=== PATIENT | female | born 1955 | race Caucasian/White ===

== ENCOUNTER 2021-11-09 17:02 | Inpatient (IN) | payer MEDICARE, OTHER ==
[~2021-11-09] VITALS: Ht 160 cm; Wt 49.0 kg
[2021-11-09] MEDS ORDERED: IV NS 0.9% 1,000 ML BAG IV ONE (18:30)
[2021-11-09] MEDS ORDERED: VANCOMYCIN 1 GM in IV D5W 250 ML IV ONE (19:30)
--- NOTE | 2021-11-09 19:33 | NUR ---
COVID SWAB SENT TO LAB
[2021-11-09 19:51] LABS: ALBUMIN 3.3 g/dL (3.4-5.0); BILIRUBIN,DIRECT 0.1 mg/dL (0.0-0.2); BILIRUBIN,TOTAL 0.7 mg/dL (0.2-1.0); CALCIUM, SERUM 8.5 mg/dL (8.5-10.1); CREATININE 0.7 mg/dL (0.6-1.3); POTASSIUM 3.7 mmol/L (3.5-5.1); TOTAL PROTEIN, SERUM 6.6 g/dL (6.4-8.2)
--- NOTE | 2021-11-09 19:54 | NUR ---
EPIC PANEL PAGED.
[2021-11-09] MEDS ORDERED: VANCOMYCIN 1 GM VIAL ONE (20:02)
--- NOTE | 2021-11-09 20:03 | NUR ---
SEEN BY CHECO CASTRO AT BEDSIDE
--- NOTE | 2021-11-09 20:10 | NUR ---
COVID SWAB COLLECTED SENT TO LAB
[2021-11-09 20:14] LABS: BASOPHILS # (AUTO) 0.1 K/uL (0.0-0.2); BASOPHILS % (AUTO) 1.3 % (0.0-2.0); EOSINOPHILS % (AUTO) 3.5 % (0.0-6.0); HEMATOCRIT 36 % (33-45); HEMOGLOBIN 12.4 g/dL (11.5-14.8); LYMPHOCYTES # (AUTO) 1.2 K/uL (0.8-4.8); LYMPHOCYTES % (AUTO) 28.4 % (20.0-44.0); MEAN CORPUSCULAR HGB CONC 35 g/dl (31.0-36.0); MEAN CORPUSCULAR VOLUME 97 fL (82-100); MONOCYTES # (AUTO) 0.5 K/uL (0.1-1.30); MONOCYTES % (AUTO) 12.9 % (2.0-12.0); NEUTROPHILS # (AUTO) 2.3 K/uL (1.8-8.9); NEUTROPHILS % (AUTO) 53.9 % (43.0-81.0); PLATELET COUNT (AUTO) 155 K/uL (150-450); RED BLOOD CELL COUNT(AUTO) 3.68 MIL/uL (4.0-5.2); WHITE BLOOD COUNT (AUTO) 4.2 K/uL (4.3-11.0)
[2021-11-09] MEDS ORDERED: LORAZEPAM 1 MG TABLET PO PRN (21:00)
[2021-11-09] MEDS ORDERED: ACETAMINOPHEN 325 MG TABLET PO PRN (21:00)
[2021-11-09] MEDS ORDERED: MAGNESIUM HYDROXIDE 30 ML UDC PO PRN (21:00)
[2021-11-09] MEDS ORDERED: Z GUARD REMEDY 4 OZ OINT TP PRN (21:00)
[2021-11-09] MEDS ORDERED: ONDANSETRON HCL/PF 4 MG/2 ML VIAL IVP PRN (21:00)
[2021-11-09] MEDS ORDERED: TEMAZEPAM 15 MG CAPSULE PO PRN (21:00)
[2021-11-09 21:03] LABS: BAND % (MANUAL) 26 % (0.0-5.0); EOSINOPHILS % (MANUAL) 4 % (0-4); LYMPHOCYTES % (MANUAL) 24 % (16-48); METAMYELOCYTES % 2 % (0-0); MONOCYTES % (MANUAL) 16 % (0-11.0); MYELOCYTES % 4 % (0-0); NEUTROPHILS % (MANUAL) 24 (42-76)
[2021-11-09] MEDS: METRONIDAZOLE 500MG/ NS 100ML 500 MG in PREMIX 1 EA IV SCH ×2 (23:47→23:50)
[2021-11-09] MEDS: CEFTRIAXONE 1 G in IV D5W 50 ML IV SCH (23:47)
[2021-11-09] MEDS ORDERED: METRONIDAZOLE 500MG/ NS 100ML 100 ML IV ONE (23:48)
[2021-11-09] MEDS ORDERED: ENOXAPARIN SODIUM 40 MG/0.4 ML DISP.SYRIN SQ ONE (23:48)
[2021-11-09] MEDS: ATORVASTATIN 40 MG TABLET PO SCH (23:55)
[2021-11-10 00:04] VITALS: BP 132/75
[2021-11-10] MEDS ORDERED: CEFTRIAXONE 1GM BAG (ER ONLY) 50 ML IV ONE (00:31)
--- NOTE | 2021-11-10 02:24 | NUR ---
REPORT GIVEN TO 3W RN.
--- NOTE | 2021-11-10 02:43 | NUR ---
PT TRANSFERRING TO 3W VIA ACLS PROTOCOL. VSS. ALL BELONGINGS WITH PT.
[2021-11-10 02:46] LABS: BILIRUBIN,URINE NEGATIVE (NEGATIVE); COLOR,URINE YELLOW (YELLOW); LEUKOCYTE ESTERASE ,URINE NEGATIVE (NEGATIVE); NITRITE, URINE NEGATIVE (NEGATIVE); PROTEIN,URINE 30 mg/dl (NEGATIVE); UGLUCOSE NEGATIVE (NEGATIVE); UROBILINOGEN,URINE 0.2 EU/dL (0.2)
--- NOTE | 2021-11-10 03:00 | NUR ---
MS FLOUR MIXER NOTE PATIENT ALERT/ORIENTED X 4, PRIMARILY SLOVAK SPEAKING, PT ABLE TO MAKE NEEDS KNOWN. PATIENT STABLE ON RA, NO S/S OF DISTRESS OR SOB NOTED, BREATHING EVEN AND UNLABORED. IV ACCESS ON RAC #20G INTACT AND FLUSHING WELL. PATIENT HAS LEFT BUTTOCK WOUND/SCAB, WOUND PHOTO TAKEN AND PLACED IN CHART. BELONGINGS LIST COMPLETED BY JAVA XML DEVELOPER AND PLACED IN CHART. PATIENT FULLY VACCINATED FOR COVID WITH PFEIZER ON MAY 2021 AND JUN 2021. PATIENT STATES SHE HAD PNEUMONIA VACCINE ABOUT 4-5 YEARS AGO. ORIENTED PATIENT TO ROOM AND HOW TO USE CALL LIGHT AND REMOTE. PATIENT IS AMBULATORY TO BATHROOM AND STEADY. PATIENT STATES SHE'S STILL HAVING NAUSEA AND DIARRHEA. SAFETY MEASURES IN PLACE: CALL LIGHT WITHIN REACH, BED LOCKED IN LOWEST POSITION. PATIENT ON FULL LIQUID DIET. WILL CONTINUE TO MONITOR PATIENT
[2021-11-10] MEDS: IV NS 0.9% 1,000 ML IV PRN (04:05)
--- NOTE | 2021-11-10 05:49 | NUR ---
MS RN NOTE IV FLAGYL 500 MG NOT AVAILABLE ON FLOOR. PRINTED ORDER AND GAVE TO NURSING BREASTER. AWAITING FOR MEDICATION
[2021-11-10] MEDS ORDERED: METRONIDAZOLE 500MG/ NS 100ML 100 ML IV ONE (06:03)
[2021-11-10] MEDS: METRONIDAZOLE 500MG/ NS 100ML 500 MG in PREMIX 1 EA IV SCH ×3 (06:13→20:16)
[2021-11-10 07:32] LABS: CALCIUM, SERUM 8.1 mg/dL (8.5-10.1); CREATININE 0.7 mg/dL (0.6-1.3); MAGNESIUM 2.5 mg/dL (1.8-2.4); PHOSPHORUS 2.4 mg/dL (2.5-4.9); POTASSIUM 3.3 mmol/L (3.5-5.1)
--- NOTE | 2021-11-10 07:39 | NUR ---
MS RN CLOSING NOTE PATIENT AWAKE IN BED, ALERT/ORIENTED X 4, PT ABLE TO MAKE NEEDS KNOWN, PRIMARILY CHINESE SPEAKING. PATIENT STABLE ON RA, NO S/S OF DISTRESS OR SOB NOTED, BREATHING EVEN AND UNLABORED. IV ACCESS ON RAC #20G INTACT AND INFUSING NS @ 100 ML/HR. MEDICATIONS GIVEN ORDERED, PT NEEDS MET THROUGHOUT SHIFT. PATIENT AMBULATORY TO BATHROOM. SAFETY MEASURES IN PLACE: CALL LIGHT WITHIN REACH, SIDE RAILS UP X 2, BED LOCKED IN LOWEST POSITION. ENDORSED TO DAY SHIFT NURSE FOR CONTINUITY OF CARE
--- NOTE | 2021-11-10 07:42 | NUR ---
RN OPENING NOTE- PT AWAKE IN BED, ALERT/ORIENTED X 4, PT ABLE TO MAKE NEEDS KNOWN, PRIMARILY FRISIAN SPEAKING. PATIENT STABLE ON RA, NO S/S OF DISTRESS OR SOB NOTED, BREATHING EVEN AND NON-LABORED. IV ACCESS ON RAC #20G INTACT AND INFUSING NS @ 100 ML/HR. PATIENT AMBULATORY TO BATHROOM. SAFETY MEASURES IN PLACE: CALL LIGHT WITHIN REACH, SIDE RAILS UP X 2, BED LOCKED IN LOWEST POSITION. MONITOR/ASSIST
[2021-11-10 07:45] LABS: BASOPHILS % (AUTO) 0.6 % (0.0-2.0); EOSINOPHILS % (AUTO) 3.5 % (0.0-6.0); HEMATOCRIT 37 % (33-45); HEMOGLOBIN 12.4 g/dL (11.5-14.8); LYMPHOCYTES # (AUTO) 1.6 K/uL (0.8-4.8); MEAN CORPUSCULAR HGB CONC 34 g/dl (31.0-36.0); MEAN CORPUSCULAR VOLUME 98 fL (82-100); MONOCYTES # (AUTO) 0.5 K/uL (0.1-1.30); MONOCYTES % (AUTO) 10.7 % (2.0-12.0); NEUTROPHILS # (AUTO) 2.3 K/uL (1.8-8.9); NEUTROPHILS % (AUTO) 50.2 % (43.0-81.0); PLATELET COUNT (AUTO) 145 K/uL (150-450); RED BLOOD CELL COUNT(AUTO) 3.78 MIL/uL (4.0-5.2); WHITE BLOOD COUNT (AUTO) 4.6 K/uL (4.3-11.0)
[2021-11-10] MEDS: PANTOPRAZOLE 40 MG TABLET.DR PO SCH (08:03)
[2021-11-10] MEDS: LEVOTHYROXINE SODIUM 25 MCG TABLET PO SCH (08:03)
[2021-11-10] MEDS ORDERED: DIABETES (09:05)
[2021-11-10] MEDS ORDERED: B/P MED (09:05)
[2021-11-10] MEDS ORDERED: POTASSIUM CHLORIDE 20 MEQ POWDER PACKET PO SCH (10:00)
[2021-11-10] MEDS ORDERED: PYRI50TA15 PO (10:53)
[2021-11-10] MEDS ORDERED: LOSA25TA27 PO (10:53)
[2021-11-10] MEDS ORDERED: LEVO25TA7 PO (10:53)
[2021-11-10] MEDS ORDERED: METH-647 PO (10:53)
[2021-11-10] MEDS ORDERED: MULT-439 PO (10:53)
[2021-11-10] MEDS ORDERED: SULF1TAB48 PO (10:53)
[2021-11-10] MEDS ORDERED: CYAN-51 PO (10:53)
[2021-11-10] MEDS ORDERED: METO25TA4 PO (10:53)
[2021-11-10] MEDS ORDERED: CHOL200013 PO (10:53)
[2021-11-10] MEDS ORDERED: PANT40TA49 PO (10:53)
[2021-11-10] MEDS ORDERED: ACYC400T19 PO (10:53)
[2021-11-10] MEDS ORDERED: ASCO100031 PO (10:53)
[2021-11-10] MEDS ORDERED: ATOR40TA GT (10:53)
[2021-11-10] MEDS ORDERED: NEUTRA PHOS 1 POWD.PACKET PO ONE (13:00)
[2021-11-10 14:16] LABS: BAND % (MANUAL) 6 % (0.0-5.0); BASOPHILS % (MANUAL) 1 % (0.0-2.0); LYMPHOCYTES % (MANUAL) 39 % (16-48); METAMYELOCYTES % 2 % (0-0); MONOCYTES % (MANUAL) 4 % (0-11.0); MYELOCYTES % 1 % (0-0); NEUTROPHILS % (MANUAL) 47 (42-76)
--- NOTE | 2021-11-10 18:32 | NUR ---
RN CLOSING NOTE- NO CHANGES, CONTINUES ON CLEAR LIQUIDS, LESS DIARRHEA, PT AWAKE, ALERT/ORIENTED X 4, PT ABLE TO MAKE NEEDS KNOWN, PRIMARILY KYRGY[place] SPEAKING. PATIENT STABLE ON RA, NO S/S OF DISTRESS OR SOB NOTED, BREATHING EVEN AND NON-LABORED. IV ACCESS ON RAC #20G INTACT AND INFUSING NS @ 100 ML/HR. PATIENT AMBULATORY TO BATHROOM. SAFETY MEASURES IN PLACE: CALL LIGHT WITHIN REACH, SIDE RAILS UP X 2, BED LOCKED IN LOWEST POSITION. MONITOR/ASSIST
--- NOTE | 2021-11-10 19:39 | NUR ---
RN OPENING NOTES. RECEIVED PT IN AAOX4 PRIMARILY MICRONESIAN SPEAKING.SON AT BEDSIDE.EVER WELL RA, NOSIGN SOB/DISTRESS NOTED, BREATHING EVEN AND NON-LABORED. IV ACCESS ON RAC #20G INTACT AND INFUSING NS @ 100 ML/HR. PATIENT AMBULATORY TO BATHROOM. SAFETY MEASURES IN PLACE: CALL LIGHT WITHIN REACH, SIDE RAILS UP X 2, BED LOCKED IN LOWEST POSITION. WILL CONTINUE TO MONITOR.
[2021-11-10 20:00] VITALS: BP 132/75
[2021-11-10] MEDS: CEFTRIAXONE 1 G in IV D5W 50 ML IV SCH (21:36)
[2021-11-10] MEDS: ATORVASTATIN 40 MG TABLET PO SCH (21:39)
[2021-11-10] MEDS: ENOXAPARIN SODIUM 40 MG/0.4 ML DISP.SYRIN SQ SCH ×2 (21:41)
[2021-11-11] MEDS: METRONIDAZOLE 500MG/ NS 100ML 500 MG in PREMIX 1 EA IV SCH ×3 (04:24→20:00)
[2021-11-11 06:27] LABS: BASOPHILS # (AUTO) 0.1 K/uL (0.0-0.2); BASOPHILS % (AUTO) 1.3 % (0.0-2.0); EOSINOPHILS % (AUTO) 5.1 % (0.0-6.0); HEMATOCRIT 36 % (33-45); HEMOGLOBIN 12.4 g/dL (11.5-14.8); LYMPHOCYTES # (AUTO) 1.3 K/uL (0.8-4.8); LYMPHOCYTES % (AUTO) 30.1 % (20.0-44.0); MEAN CORPUSCULAR HGB CONC 35 g/dl (31.0-36.0); MEAN CORPUSCULAR VOLUME 96 fL (82-100); MONOCYTES # (AUTO) 0.3 K/uL (0.1-1.30); NEUTROPHILS # (AUTO) 2.3 K/uL (1.8-8.9); NEUTROPHILS % (AUTO) 55.5 % (43.0-81.0); PLATELET COUNT (AUTO) 152 K/uL (150-450); RED BLOOD CELL COUNT(AUTO) 3.71 MIL/uL (4.0-5.2); WHITE BLOOD COUNT (AUTO) 4.2 K/uL (4.3-11.0)
--- NOTE | 2021-11-11 06:31 | NUR ---
RN CLOSING NOTES. pt in bed sleeping darren well on rm air no sign sob/distress noted.breathing even and unlabored.no complaine of pain/discomfort during shift.due meds given as order.all needs attended.iv access in rac g18 intat and patent.call light within reach.safety measured in place.bed locked in low position.will endorsed to next shift.
[2021-11-11 07:02] LABS: ALBUMIN 2.9 g/dL (3.4-5.0); BILIRUBIN,TOTAL 0.5 mg/dL (0.2-1.0); CALCIUM, SERUM 8.5 mg/dL (8.5-10.1); CREATININE 0.7 mg/dL (0.6-1.3); MAGNESIUM 2.3 mg/dL (1.8-2.4); PHOSPHORUS 3.4 mg/dL (2.5-4.9); POTASSIUM 3.9 mmol/L (3.5-5.1); TOTAL PROTEIN, SERUM 6.1 g/dL (6.4-8.2)
--- NOTE | 2021-11-11 07:20 | NUR ---
RN OPENING NOTES RECEIVED PATIENT IN BED AWAKE, A/O X4, VERBALLY RESPONSIVE. NO SIGNS OF ACUTE DISTRESS NOTED. ON ROOM AIR, TOLERATING WELL, NO SOB NOTED. NOTED WITH IV ACCESS ON RIGHT AC #18G, INTACT AND PATENT, WITH NS @ 100ML/HR RUNNING. PATIENT STILL C/O DIARRHEA. SAFETY MEASURE IN PLACE.BED IN LOWEST AND LOCKED POSITION, SIDE RAILS UP X2,CALL LIGHT PLACED WITHIN EASY REACH. WILL CONTINUE TO MONITOR PATIENT.
[2021-11-11] MEDS: LEVOTHYROXINE SODIUM 25 MCG TABLET PO SCH (08:07)
[2021-11-11] MEDS: PANTOPRAZOLE 40 MG TABLET.DR PO SCH (08:07)
[2021-11-11 09:07] LABS: BAND % (MANUAL) 2 % (0.0-5.0); LYMPHOCYTES % (MANUAL) 25 % (16-48); METAMYELOCYTES % 2 % (0-0); MONOCYTES % (MANUAL) 9 % (0-11.0); MYELOCYTES % 4 % (0-0); NEUTROPHILS % (MANUAL) 51 (42-76)
--- NOTE | 2021-11-11 09:32 | NUR ---
WOUND CARE CONSULT: PT SEEN FOR DRY SCAB ON LEFT BUTTOCK, PRESENT ON ADMISSION. PT DENIES ANY TENDERNESS. NO ERYTHEMA OR DRAINAGE NOTED. WILL SEE PRN. CURRENT FILI SCORE IS 23.
[2021-11-11] MEDS: IV NS 0.9% 1,000 ML IV PRN (12:11)
--- NOTE | 2021-11-11 18:54 | NUR ---
RN CLOSING NOTES PATIENT IN BED AWAKE, A/O X4, VERBALLY RESPONSIVE. NO SIGNS OF ACUTE DISTRESS NOTED. REMAINS STABLE ON ROOM AIR, NO SOB NOTED. IV ACCESS ON RIGHT AC #18G, INTACT AND PATENT, WITH NS @ 100ML/HR RUNNING. PATIENT STILL C/O DIARRHEA. ON FULL LIQUID DIET. SAFETY MEASURE IN PLACE. BED IN LOWEST AND LOCKED POSITION, SIDE RAILS UP X2,CALL LIGHT PLACED WITHIN EASY REACH. WILL ENDORSE TO NEXT SHIFT FOR CONTINUITY OF CARE.
--- NOTE | 2021-11-11 19:30 | NUR ---
RN OPENING NOTES. RECEIVED PT IN AAOX4 PRIMARILY YEMENI SPEAKING.SON AT BEDSIDE.EVER WELL RA, NOSIGN SOB/DISTRESS NOTED, BREATHING EVEN AND NON-LABORED. IV ACCESS ON RAC #20G INTACT AND INFUSING NS @ 100 ML/HR. PATIENT AMBULATORY TO BATHROOM. SAFETY MEASURES IN PLACE: CALL LIGHT WITHIN REACH, SIDE RAILS UP X 2, BED LOCKED IN LOWEST POSITION. WILL CONTINUE TO MONITOR.
[2021-11-11 20:00] VITALS: BP 130/70
[2021-11-11] MEDS: ENOXAPARIN SODIUM 40 MG/0.4 ML DISP.SYRIN SQ SCH (21:23)
[2021-11-11] MEDS: CEFTRIAXONE 1 G in IV D5W 50 ML IV SCH (21:24)
[2021-11-11] MEDS: ATORVASTATIN 40 MG TABLET PO SCH (21:26)
[2021-11-11 22:00] VITALS: BP 130/70
[2021-11-12] MEDS: IV NS 0.9% 1,000 ML IV PRN (03:26)
[2021-11-12] MEDS: METRONIDAZOLE 500MG/ NS 100ML 500 MG in PREMIX 1 EA IV SCH (04:01)
[2021-11-12 08:00] VITALS: BP 127/74
[2021-11-12] MEDS: LEVOTHYROXINE SODIUM 25 MCG TABLET PO SCH (08:30)
[2021-11-12] MEDS: PANTOPRAZOLE 40 MG TABLET.DR PO SCH (08:30)
[2021-11-12] MEDS: METRONIDAZOLE 500 MG TABLET PO SCH ×2 (12:05→21:42)
[2021-11-12 16:00] VITALS: BP 128/71
[2021-11-12 20:00] VITALS: BP 139/75
[2021-11-12] MEDS: ATORVASTATIN 40 MG TABLET PO SCH (21:42)
[2021-11-12] MEDS: ENOXAPARIN SODIUM 40 MG/0.4 ML DISP.SYRIN SQ SCH (21:44)
[2021-11-12] MEDS: CEFTRIAXONE 1 G in IV D5W 50 ML IV SCH ×2 (22:00→23:43)
--- NOTE | 2021-11-12 23:02 | NUR ---
MS/TELE/RN AT 20:00, IV WAS REMOVED, NOT WORKING. ATTEMPTED TO INSERT NEW IV X 2 BUT UNSUCCESSFUL, YAEL, NURSING MANAGER HOSP[facility] SUCCESSFULLY INSERTED IV AT RI. HAND G 22. PATIENT IS VERY HARD STICK. AT 21:00, ROCEPHIN NOT ADMINISTERED, PER PATIENT IV IS "NO GOOD" THERE WAS BLOOD IN THE TUBINGS. ASSESSED IV, WITH GOOD BLOOD RETURN. EXPLAINED TO THE PATIENT THAT IV IS WORKING. PATIENT CALLED SON, PER SON HE WANTS TO SPEAK TO THE ONE WHO INSERTED IV. YAEL NOTIFIED ABOUT SON'S CONCERN. PER YAEL, WILL HAVE MIDLINE RN INSERT IV.
--- NOTE | 2021-11-12 23:31 | NUR ---
MS/TELE/RN OBTAINED ORDER FOR MIDLINE. MIDLINE RN HERE, INSERTED MIDLINE AT RT. UPPER ARM G 18.
--- NOTE | 2021-11-13 00:29 | NUR ---
MS/TELE/RN PATIENT IS SLEEPING AT THIS TIMNE, APPEAR COMFORTABLE, NO SIGNS OF DISTRESS NOTED, CALL LIGHT, WITHIN REACH/ WILL CONTINUEE,
--- NOTE | 2021-11-13 00:47 | NUR ---
MS/TELE/RN PATIENT IS SLEEPING AT THIS TIME, NO SIGNS OF DISTRESS NOTED, CALL LIGHT IN REAC, WILL CONTNUE TO MONITOR.
[2021-11-13] MEDS: IV NS 0.9% 1,000 ML IV PRN ×2 (03:30→16:40)
[2021-11-13] MEDS: METRONIDAZOLE 500 MG TABLET PO SCH ×3 (05:29→21:48)
--- NOTE | 2021-11-13 06:48 | NUR ---
MS/TELE/RN PATIENT IS AWAKE AT THIS TIME, NO C/O PAIN, NO SIGNS OF DISTRESS NOTED, CALL LIGHT IN REACH, ALL NEEDS ATTENDED AT THIS TIME, WILL CONTINUE TO MONITOR.
--- NOTE | 2021-11-13 07:00 | NUR ---
MS RN OPENING NOTES PATIENT LAYING IN BED, A/O X 4, ABLE TO MAKE NEEDS KNOWN. TOLERATING WELL ON ROOM AIR WITH NO S/S RESPIRATORY DISTRESS. NO COMPLAINTS OF PAIN OR DISCOMFORT AT THIS TIME. IV ACCESS ON RICHIE MIDLINE WITH NS INFUSING @ 100 ML/HR. SAFETY MEASURES IN PLACE: CALL LIGHT WITHIN REACH, SIDE RAILS UP X 2, BED LOCKED IN LOWEST POSITION. WILL CONTINUE TO MONITOR.
[2021-11-13 07:14] LABS: BASOPHILS # (AUTO) 0.1 K/uL (0.0-0.2); BASOPHILS % (AUTO) 1.4 % (0.0-2.0); EOSINOPHILS % (AUTO) 5.3 % (0.0-6.0); HEMATOCRIT 39 % (33-45); HEMOGLOBIN 13.2 g/dL (11.5-14.8); LYMPHOCYTES % (AUTO) 46.3 % (20.0-44.0); MEAN CORPUSCULAR HGB CONC 34 g/dl (31.0-36.0); MEAN CORPUSCULAR VOLUME 96 fL (82-100); MONOCYTES # (AUTO) 0.3 K/uL (0.1-1.30); MONOCYTES % (AUTO) 7.3 % (2.0-12.0); NEUTROPHILS # (AUTO) 1.7 K/uL (1.8-8.9); NEUTROPHILS % (AUTO) 39.7 % (43.0-81.0); PLATELET COUNT (AUTO) 181 K/uL (150-450); RED BLOOD CELL COUNT(AUTO) 4.03 MIL/uL (4.0-5.2); WHITE BLOOD COUNT (AUTO) 4.3 K/uL (4.3-11.0)
[2021-11-13 07:35] LABS: CALCIUM, SERUM 8.6 mg/dL (8.5-10.1); CREATININE 0.8 mg/dL (0.6-1.3); POTASSIUM 3.2 mmol/L (3.5-5.1)
[2021-11-13] MEDS: PANTOPRAZOLE 40 MG TABLET.DR PO SCH (07:58)
[2021-11-13] MEDS: LEVOTHYROXINE SODIUM 25 MCG TABLET PO SCH (07:58)
[2021-11-13] MEDS: POTASSIUM CHLORIDE 20 MEQ POWDER PACKET PO SCH ×2 (11:23→12:08)
--- NOTE | 2021-11-13 19:40 | NUR ---
RN OPENING NOTES RECEIVED PATIENT IN BED; AWAKE, ALERT AND ORIENTED X4. SET[place] SPEAKING. SON AT BEDSIDE. ON ROOM AIR, TOLERATING WELL. BREATHING IS EVEN AND NONLABORED. NOT IN ANY FORM OF RESPIRATORY DISTRESS. WITH MIDLINE @ RIGHT UPPER ARM; PATENT AND INTACT INFUSING WITH NS REGULATED @ 100 ML/HR; FLUSHES WELL. SAFETY MEASURES INITIATED: HEAD OF BED ELEVATED, CALL LIGHT & TABLE WITHIN REACH, SIDE RAILS UP X 2, BED IN LOWEST LOCKED POSITION. WILL CONTINUE TO MONITOR.
[2021-11-13 20:00] VITALS: BP 129/75
[2021-11-13] MEDS: ATORVASTATIN 40 MG TABLET PO SCH (21:48)
[2021-11-13] MEDS: ENOXAPARIN SODIUM 40 MG/0.4 ML DISP.SYRIN SQ SCH (21:50)
[2021-11-13] MEDS: CEFTRIAXONE 1 G in IV D5W 50 ML IV SCH (22:03)
[2021-11-14] MEDS: METRONIDAZOLE 500 MG TABLET PO SCH ×2 (04:21→12:14)
[2021-11-14 06:31] LABS: BASOPHILS # (AUTO) 0.1 K/uL (0.0-0.2); BASOPHILS % (AUTO) 1.9 % (0.0-2.0); EOSINOPHILS % (AUTO) 6.4 % (0.0-6.0); HEMATOCRIT 35 % (33-45); HEMOGLOBIN 12.3 g/dL (11.5-14.8); LYMPHOCYTES # (AUTO) 1.3 K/uL (0.8-4.8); LYMPHOCYTES % (AUTO) 37.6 % (20.0-44.0); MEAN CORPUSCULAR HGB CONC 36 g/dl (31.0-36.0); MEAN CORPUSCULAR VOLUME 95 fL (82-100); MONOCYTES # (AUTO) 0.4 K/uL (0.1-1.30); MONOCYTES % (AUTO) 10.2 % (2.0-12.0); NEUTROPHILS # (AUTO) 1.6 K/uL (1.8-8.9); NEUTROPHILS % (AUTO) 43.9 % (43.0-81.0); PLATELET COUNT (AUTO) 153 K/uL (150-450); RED BLOOD CELL COUNT(AUTO) 3.62 MIL/uL (4.0-5.2); WHITE BLOOD COUNT (AUTO) 3.5 K/uL (4.3-11.0)
--- NOTE | 2021-11-14 07:05 | NUR ---
RN OPENING NOTES: RECEIVED PATIENT IN BED; AWAKE, ALERT AND ORIENTED X4. GHANAIAN SPEAKING. ON ROOM AIR, TOLERATING WELL. BREATHING IS EVEN AND NONLABORED. NOT IN ANY FORM OF RESPIRATORY DISTRESS. WITH MIDLINE @ RIGHT UPPER ARM; PATENT AND INTACT INFUSING WITH NS REGULATED @ 100 ML/HR; FLUSHES WELL. SAFETY MEASURES INITIATED: HEAD OF BED ELEVATED, CALL LIGHT & TABLE WITHIN REACH, SIDE RAILS UP X 2, BED IN LOWEST LOCKED POSITION. WILL CONTINUE TO MONITOR
--- NOTE | 2021-11-14 07:09 | NUR ---
MS RN CLOSING NOTES PATIENT IN BED; AWAKE, ALERT AND ORIENTED X4. [place]EL[place] SPEAKING. STABLE ON ROOM AIR. BREATHING EVENLY AND NONLABORED. NOT IN ANY FORM OF RESPIRATORY DISTRESS. WITH MIDLINE @ RIGHT UPPER ARM; PATENT AND INTACT INFUSING WITH NS REGULATED @ 100 ML/HR; FLUSHES WELL. SAFETY MEASURES IMPLEMENTED: HEAD OF BED ELEVATED, CALL LIGHT & TABLE WITHIN REACH, SIDE RAILS UP X 2, BED IN LOWEST LOCKED POSITION. ENDORSED TO MORNING SHIFT FOR ANATOLIY.
[2021-11-14 07:12] LABS: CALCIUM, SERUM 8.5 mg/dL (8.5-10.1); CREATININE 0.8 mg/dL (0.6-1.3); POTASSIUM 3.6 mmol/L (3.5-5.1)
[2021-11-14 08:00] VITALS: BP 144/69
[2021-11-14] MEDS: PANTOPRAZOLE 40 MG TABLET.DR PO SCH (08:08)
[2021-11-14] MEDS: LEVOTHYROXINE SODIUM 25 MCG TABLET PO SCH (08:08)
--- NOTE | 2021-11-14 10:00 | NUR ---
RN NOTES: SEEN BY DR TOBIN WITH DISCHARGE ORDER, SON CALLED MADE AWARE
--- NOTE | 2021-11-14 14:10 | NUR ---
PINION POLISHER NOTE: ALEN Rees CAME TO MEDICAL EQUIPMENT REPAIR TECHNICIAN PT TO HOME. PT ALERT AND ORIENTED X 4, DISCHARGE INSTRUCTION AND PRESCRIPTION GIVEN. MIDLINE REMOVED. SKIN INTACT, NO BLEEDING NOTED. SON TOOK PT WITH HIS PRIVATE CAR IN STABLE CONDITION
== END 2021-11-14 14:20 | disposition home or self-care (01) | DRG 392 ==
LOC: ER 17:09 → TRANSITION 22:46 → MED 11-10 02:12
PROVIDERS: ADMIT Nurse Practitioner Acute Care
PROC: 05H933Z Insertion of Infusion Device into Right Brachial Vein, Percutaneous Approach (ICD-10-PCS; principal; 2021-11-12)
DX: A09 Infectious gastroenteritis and colitis, unspecified (principal); C90.00 Multiple myeloma not having achieved remission; K76.89 Other specified diseases of liver; Z88.4 Allergy status to anesthetic agent; Z88.8 Allergy status to other drugs, medicaments and biological substances; I10 Essential (primary) hypertension; E03.9 Hypothyroidism, unspecified; E78.5 Hyperlipidemia, unspecified; Z20.822 Contact with and (suspected) exposure to COVID-19
CPT/HCPCS: 36415; 80048-TC; 80053-TC; 80076-TC; 83605-TC; 83690-TC; 83735-TC; 84100-TC; 85025-TC; 87040-TC; 87045-TC; 87081-TC; 89055; A4216; C9803; G0378; J0696; J1650; J2405; J3370; J7030; J7060